=== PATIENT | female | born 1980 | race Caucasian/White ===

== ENCOUNTER 2025-08-21 03:43 | Emergency (ER) | payer BC, MEDICAID ==
[2025-08-21 04:12] LABS: BASOPHILS ABSOLUTE AUTO 0.08 K/uL (0.00-0.20); BASOPHILS PERCENT AUTO 0.8 % (0.0-1.0); EOSINOPHILS ABSOLUTE AUTO 0.02 K/uL (0.00-0.45); EOSINOPHILS PERCENT AUTO 0.2 % (0.0-6.0); IMMATURE GRAN ABSOLUTE AUTO 0.02 K/uL (0.00-0.05); IMMATURE GRAN PERCENT AUTO 0.2 % (0.0-0.4); LYMPHOCYTES ABSOLUTE AUTO 1.98 K/uL (1.00-4.80); LYMPHOCYTES PERCENT AUTO 18.7 % (24.0-44.0); MEAN PLATELET VOLUME 9.9 fL (9.4-12.3); MONOCYTES ABSOLUTE AUTO 0.71 K/uL (0.00-0.80); MONOCYTES PERCENT AUTO 6.7 % (0.0-8.0); NEUTROPHILS ABSOLUTE AUTO 7.80 K/uL (1.80-7.70); NEUTROPHILS PERCENT AUTO 73.4 % (41.0-71.0); NRBC ABSOLUTE 0.00 K/uL (0.00-0.02); NRBC PERCENT 0.0 /100WBC (0.0-0.2); PLATELET COUNT,PLT 350 K/uL (150-400); RED BLOOD CELL COUNT 5.26 M/uL (4.10-5.30); WHITE BLOOD CELL COUNT,WBC 10.61 K/uL (3.9-11.3)
[2025-08-21 04:23] LABS: A/G RATIO 0.8 (0.9-1.6); ALANINE AMINOTRANSFERASE,ALT 50.0 IU/L (14-63); ASPARTATE AMNIOTRANSFERASE,AST 53.0 IU/L (15-37); BILIRUBIN TOTAL 0.7 mg/dL (0.2-1.0); BLOOD UREA NITROGEN,BUN 10.0 mg/dL (7.0-18.0); CARBON DIOXIDE,CO2 23.9 mmol/L (21.0-32.0); CHLORIDE,CL 100.0 mmol/L (98-107); CREATININE 0.5 mg/dL (0.6-1.0); EST CRCL DRUG DOSING (CG) 116.3 mL/min; GLUCOSE RANDOM 113.0 mg/dL (74-106); POTASSIUM,K 2.8 mmol/L (3.5-5.1); PROTEIN TOTAL,TP 7.7 g/dL (6.4-8.2); SODIUM,NA 140.0 mmol/L (136-145)
[2025-08-21] MEDS: Ondansetron 4 MG/2 ML SDV IVPUSH ONE (04:27)
[2025-08-21 04:31] LABS: ESTIMATED GFR 117.0 mL/min (>60)
[2025-08-21] MEDS: Magnesium Sulfate 2 GM/50 mL 2 GM in Premix Bag 1 BAG IV ONE ×2 (05:31→05:33)
[2025-08-21 05:38] LABS: GLUCOSE,URINE NEGATIVE (NEGATIVE); OCCULT BLOOD,URINE TRACE-LYSED (NEGATIVE)
[2025-08-21] MEDS: LORazepam 2 MG/ML SDV IVPUSH ONE (05:57)
[2025-08-21 06:14] LABS: APPEARANCE,URINE HAZY
[2025-08-21 06:15] LABS: EPITHELIAL CELLS,URINE FEW (NONE-FEW)
[2025-08-21] MEDS: Iopamidol 755 MG/ML 500 ML Multipack Bottle IVPUSH ONE (07:07)
[2025-08-21] MEDS ORDERED: Naloxone 0.4 MG/ML SDV IVPUSH PRN (09:10)
== END 2025-08-21 12:01 ==
LOC: MW.ED 03:43
DX: R10.84 Generalized abdominal pain (principal); R11.2 Nausea with vomiting, unspecified; E87.6 Hypokalemia; F17.200 Nicotine dependence, unspecified, uncomplicated; Z75.3 Unavailability and inaccessibility of health-care facilities; Z79.890 Hormone replacement therapy
CPT/HCPCS: 36415; 74177; 74177-26; 80053; 81001; 83605; 83690; 83735; 84132; 85025; 93005; 93010; 96361; 96365; 96366; 96367; 96375; 99285; 99285-25; J2060; J2270; J2405; J2765; J3475; J3480; J7030; Q9967